=== PATIENT | female | born 1975 | race Caucasian/White ===

== ENCOUNTER 2016-11-08 10:18 | Day surgery (SDC) | payer OTHER ==
[~2016-11-08] VITALS: Ht 170.2 cm; Wt 62.0 kg
[~2016-11-08 10:18] MED LIST: LIDOCAINE 1%-EPI 1:100K, 30ML ONE
[2016-11-08] MEDS ORDERED: LACTATED RINGERS 1,000 ML IV SCH (10:50)
[2016-11-08 10:54] VITALS: BP 125/81
[2016-11-08] MEDS ORDERED: FENTANYL PF 250 MCG/5ML ONE (10:59)
[2016-11-08] MEDS ORDERED: MIDAZOLAM 1 MG/ML, 2ML ONE (10:59)
[2016-11-08] MEDS ORDERED: LIDOCAINE 1%, 2ML SQ PRN (11:00)
[2016-11-08] MEDS ORDERED: IBUP-1222 PO (11:08)
[2016-11-08] MEDS ORDERED: PREN1TAB28 PO (11:08)
[2016-11-08] MEDS ORDERED: CALC1CAP8 PO (11:08)
[2016-11-08 11:16] LABS: HCG UR OBC PASS
[2016-11-08 11:28] LABS: HEMOGLOBIN 14.4 g/dL (11.7-16.4)
[2016-11-08] MEDS ORDERED: CLINDAMYCIN 150 MG/ML, 6ML ONE (11:31)
[2016-11-08] MEDS ORDERED: METRONIDAZOLE PMX 500MG/100ML 100 ML ONE (11:31)
[2016-11-08 11:39] LABS: BLOOD UREA NITROGEN 9 mg/dL (7-18)
[2016-11-08] MEDS ORDERED: PROPOFOL 10 MG/ML, 20ML ONE (11:46)
[2016-11-08] MEDS ORDERED: DEXAMETHASONE 4 MG/ML, 1ML ONE (11:46)
[2016-11-08] MEDS ORDERED: KETOROLAC 30 MG/1 ML ONE (11:46)
[2016-11-08] MEDS ORDERED: SUCCINYLCHOLINE 20 MG/ML, 10ML ONE (11:46)
[2016-11-08] MEDS ORDERED: HYDROmorphone 1 MG/ML, 1ML IV PRN ×2 (12:30→13:00)
[2016-11-08] MEDS ORDERED: ONDANSETRON 2MG/ML, 2ML IVPush PRN ×2 (12:30→13:00)
[2016-11-08] MEDS ORDERED: ACETAMINOPHEN 325 MG TABLET PO PRN ×2 (12:30→13:00)
[2016-11-08] MEDS ORDERED: MIDAZOLAM 1 MG/ML, 2ML IV PRN ×2 (12:30→13:00)
[2016-11-08] MEDS ORDERED: MEPERIDINE/PF 25MG/0.5ML IVPush PRN ×2 (12:30→13:00)
[2016-11-08] MEDS ORDERED: hydrALAzine 20 MG/ML, 1ML IV PRN ×2 (12:30→13:00)
[2016-11-08] MEDS ORDERED: ALBUTEROL/IPRATROPIUM 2.5MG/0.5MG, 3 ML NPPB PRN ×2 (12:30→13:00)
[2016-11-08] MEDS ORDERED: LABETALOL 5MG/ML, 20ML IV PRN ×2 (12:30→13:00)
[2016-11-08] MEDS ORDERED: FENTANYL PF 100 MCG/2ML IV PRN ×2 (12:30→13:00)
[2016-11-08] MEDS ORDERED: PROMETHAZINE 25 MG/ML, 1ML IV PRN ×2 (12:30→13:00)
[2016-11-08] MEDS ORDERED: OXYcodone 5 MG/5 ML ORAL.SOL UDC PO PRN ×2 (12:30→13:00)
[2016-11-08] MEDS ORDERED: MEPERIDINE/PF 25MG/0.5ML ONE (12:46)
[2016-11-08] MEDS ORDERED: ACETAMINOPHEN 325 MG TABLET ONE (12:47)
[2016-11-08] MEDS ORDERED: OXYcodone 5 MG/5 ML ORAL.SOL UDC ONE (12:47)
== END 2016-11-08 16:30 | disposition home or self-care (01) ==
LOC: OUT 10:18
PROVIDERS: ATTEND Obstetrics & Gynecology Gynecology
DX: N84.0 Polyp of corpus uteri (principal); N88.2 Stricture and stenosis of cervix uteri; K21.9 Gastro-esophageal reflux disease without esophagitis; Z79.899 Other long term (current) drug therapy
CPT/HCPCS: 36415; 58558; 80048; 81001; 81025; 85025; 87086; 88305; J0330; J1100; J1885; J2175; J2250; J2704; J3010; J3490